=== PATIENT | female | born 1955 | race African-American/Black ===

== ENCOUNTER 2017-04-01 03:30 | Inpatient (IN) | payer OTHER ==
[2017-04-01] VITALS (13 sets, daily range): BP systolic 130–173; BP diastolic 60–84; PULSE 77–109; TEMP 98.1–99
[~2017-04-01] VITALS: Ht 160 cm; Wt 98.1 kg
[~2017-04-01 03:30] MED LIST: ATORVASTATIN; GLIPIZIDE10 MG PO; LASIX40 MG PO; METFORMIN1000 MG PO
[2017-04-01] MEDS ORDERED: LOTREL 5/20 CAP1 CAP PO (04:25)
[2017-04-01] MEDS ORDERED: LIPITOR 80MG80 MG PO (04:32)
[2017-04-01] MEDS ORDERED: PRINIVIL10 MG PO (04:33)
[2017-04-01] MEDS ORDERED: GLUCOTROL 5M5 MG/TAB PO (04:35)
[2017-04-02] VITALS (10 sets, daily range): BP systolic 136–187; BP diastolic 60–94; PULSE 65–82; TEMP 97.8–98.5
[2017-04-02] MEDS ORDERED: LANTUS SOLOS100 U/ML SQ (09:56)
[2017-04-02] MEDS ORDERED: ASPIRIN 32325 MG/TAB PO (09:56)
[2017-04-02] MEDS ORDERED: GLUCAGON EMERGEN1 M1 SQ (12:27)
[2017-04-03] MEDS ORDERED: INSULIN PEN NE1 EAC1 MC (15:16)
== END 2017-04-02 15:38 | disposition home or self-care (01) | DRG 65 ==
LOC: MEDICAL 03:30
PROVIDERS: Family Medicine
DX: I63.9 Cerebral infarction, unspecified (principal); G81.91 Hemiplegia, unspecified affecting right dominant side; I10 Essential (primary) hypertension; E78.5 Hyperlipidemia, unspecified; R47.9 Unspecified speech disturbances; E11.65 Type 2 diabetes mellitus with hyperglycemia; D17.1 Benign lipomatous neoplasm of skin and subcutaneous tissue of trunk; Z79.4 Long term (current) use of insulin
CPT/HCPCS: 99222-AI; 99239; A9585; J1650; J1815; J2250; J3010

== ENCOUNTER 2017-04-16 15:43 | Inpatient (IN) | payer OTHER ==
[~2017-04-16] VITALS: Ht 170.2 cm; Wt 76.6 kg
[~2017-04-16 15:43] MED LIST changes: +ASPIRIN 32325 MG/TAB PO; +GLUCAGON EMERGEN1 M1 SQ; +GLUCOTROL 5M5 MG/TAB PO; +INSULIN PEN NE1 EAC1 MC; +LANTUS SOLOS100 U/ML SQ; +LIPITOR 80MG80 MG PO; +LOTREL 5/20 CAP1 CAP PO; +PRINIVIL10 MG PO
[2017-04-16 18:16] VITALS: BP 163/100; PULSE 62; TEMP 97.8
[2017-04-16 18:46] LABS: BASO % 0.5 % (0.0-2.0); EOS % 0.5 % (0-4.0); GRAN # 3.9 (1.4-6.5); GRAN % 58.8 % (42.2-75.2); HEMATOCRIT 38.9 % (37.0-47.0); HEMOGLOBIN 12.1 g/dl (12.5-16.0); LYMPH # 2.1 (1.2-3.4); LYMPH % 31.7 % (20.0-51.0); MEAN CELL VOLUME 82 fl (80.0-100.0); MEAN CORPUSCULAR HEMOGLOBIN 26 pg (27.0-31.0); MEAN CORPUSCULAR HGB CONC 31 g/dl (33.0-37.0); MEAN PLATELET VOLUME 10.3 fl (7.4-10.4); MONO # 0.6 (0.1-0.6); MONO % 8.3 % (1.7-9.3); PLATELET COUNT 303 K/mm3 (130-400); RED BLOOD COUNT 4.73 M/mm3 (4.10-5.30); REDCELL DISTRIBUTION WIDTH-CV 14.1 % (11.5-14.5); WHITE BLOOD COUNT 6.6 K/mm3 (4.8-10.8)
[2017-04-16 18:53] LABS: ADJUSTED CALCIUM 9.9 mg/dL (8.4-10.2); ALBUMIN 3.2 gm/dL (3.5-5.0); BILIRUBIN,TOTAL 0.5 mg/dL (0.0-1.0); CALCIUM 9.3 mg/dL (8.4-10.2); CREATININE, serum 0.5 mg/dL (0.52-1.25); POTASSIUM 4.2 mmol/L (3.4-5.0); TOTAL PROTEIN 6.8 gm/dL (6.4-8.2)
[2017-04-16 19:35] VITALS: BP 166/90; PULSE 87; TEMP 97.8
[2017-04-16 23:03] VITALS: BP 156/66; PULSE 89; TEMP 98.4
[2017-04-17 02:07] VITALS: BP 130/50; PULSE 17; TEMP 98.5
[2017-04-17 04:00] VITALS: BP 130/50; PULSE 71; TEMP 98.5
[2017-04-17 07:19] VITALS: BP 162/83; PULSE 87; TEMP 98.8
[2017-04-17 12:09] VITALS: BP 149/73; PULSE 91; TEMP 98.3
[2017-04-17 13:27] LABS: PH 5 (5-8); URINE APPEARANCE Clear; URINE BACTERIA None Seen /hpf; URINE BILIRUBIN Negative (NEGATIVE); URINE BLOOD Negative (NEGATIVE); URINE COLOR Yellow; URINE GLUCOSE 1+ (NEGATIVE); URINE KETONE Negative (NEGATIVE); URINE UROBILINOGEN Negative (NEGATIVE)
[2017-04-17 13:29] LABS: URINE WBC 20-50 /hpf
[2017-04-17 16:30] VITALS: BP 143/70; PULSE 74; TEMP 98.9
[2017-04-17 21:43] VITALS: BP 153/84; PULSE 99; TEMP 98.5
[2017-04-18 01:02] VITALS: BP 151/70; PULSE 81; TEMP 98.5
[2017-04-18 04:31] VITALS: BP 137/64; PULSE 62; TEMP 98.5
[2017-04-18 07:28] VITALS: BP 143/66; PULSE 75; TEMP 98.8
[2017-04-18 12:23] VITALS: BP 135/63; PULSE 93; TEMP 98.4
[2017-04-18] MEDS ORDERED: PLAVIX 75MG TAB75 MG PO (12:37)
[2017-04-18] MEDS ORDERED: HCTZ12.5TAB PO (12:37)
[2017-04-18] MEDS ORDERED: ZESTRIL 10MG10 MG PO (12:37)
[2017-04-18] MEDS ORDERED: PRINZIDE 12.5 M1 TA1 PO (14:19)
== END 2017-04-18 14:54 | disposition home or self-care (01) | DRG 65 ==
LOC: MEDICAL 17:15
PROVIDERS: Internal Medicine Cardiovascular Disease
DX: I63.9 Cerebral infarction, unspecified (principal); G81.91 Hemiplegia, unspecified affecting right dominant side; R29.810 Facial weakness; R47.01 Aphasia; I10 Essential (primary) hypertension; E11.9 Type 2 diabetes mellitus without complications; E78.5 Hyperlipidemia, unspecified; Z79.4 Long term (current) use of insulin
CPT/HCPCS: OP; 99223-AI; 99233-AI; 99239; A9585; J1815

== ENCOUNTER 2018-04-17 11:17 | Inpatient (IN) | payer OTHER ==
[~2018-04-17] VITALS: Ht 162.6 cm; Wt 54.8 kg
[~2018-04-17 11:17] MED LIST changes: +CVS GLUCOSE BIT1 CTB PO; +HCTZ12.5TAB PO; +PLAVIX 75MG TAB75 MG PO; +PRINZIDE 12.5 M1 TA1 PO; +ZESTRIL 10MG10 MG PO
[2018-04-17 11:46] VITALS: BP 126/62; PULSE 62; TEMP 97
[2018-04-17 15:31] VITALS: BP 173/79; PULSE 81; TEMP 97.3
[2018-04-17] MEDS ORDERED: ASPIRIN E.C. 8181 MG PO (15:39)
[2018-04-17] MEDS ORDERED: COLACE 100100 MG/CAP PO (15:39)
[2018-04-17 16:04] LABS: GRAN # 2.5 (1.4-6.5); GRAN % 59.8 % (42.2-75.2); HEMOGLOBIN 10.4 g/dl (12.5-16.0); LYMPH # 1.3 (1.2-3.4); LYMPH % 32.2 % (20.0-51.0); MEAN CELL VOLUME 86 fl (80.0-100.0); MEAN CORPUSCULAR HEMOGLOBIN 28 pg (27.0-31.0); MEAN CORPUSCULAR HGB CONC 33 g/dl (33.0-37.0); MEAN PLATELET VOLUME 9.2 fl (7.4-10.4); MONO # 0.3 (0.1-0.6); MONO % 7.5 % (1.7-9.3); PLATELET COUNT 186 K/mm3 (130-400); RED BLOOD COUNT 3.72 M/mm3 (4.10-5.30)
[2018-04-17 16:05] LABS: HEMATOCRIT 31.8 % (37.0-47.0)
[2018-04-17 16:07] LABS: INR 1.1 (0.8-3.0); PROTHROMBIN TIME 12.5 SECONDS (9.7-12.8)
[2018-04-17 16:16] LABS: ALANINE AMINOTRANSFERASE 25 U/L (9-52); ALBUMIN 2.6 gm/dL (3.5-5.0); ALKALINE PHOSPHATASE 111 U/L (50-136); ANION GAP 9 mmol/L (7-16); AST,SGOT 22 U/L (15-37); BILIRUBIN,TOTAL 1.2 mg/dL (0.0-1.0); BLOOD UREA NITROGEN 4 mg/dL (7-17); CALCIUM 8.1 mg/dL (8.4-10.2); CARBON DIOXIDE 27 mmol/L (22-30); CHLORIDE 101 mmol/L (98-107); CREATININE, serum 0.26 mg/dL (0.52-1.25); GLUCOSE 160 mg/dL (74-106); MAGNESIUM 1.4 mg/dL (1.6-2.3); POTASSIUM 3.3 mmol/L (3.4-5.0); SODIUM 136 mmol/L (137-145); TOTAL PROTEIN 5.7 gm/dL (6.4-8.2)
[2018-04-17 16:28] LABS: TROPONIN-I < 0.012 ng/mL (0.000-0.034)
[2018-04-17 20:03] VITALS: BP 148/74; PULSE 100; TEMP 98.2
[2018-04-18] VITALS (7 sets, daily range): BP systolic 124–152; BP diastolic 56–108; PULSE 92–114; TEMP 98–98.6
[2018-04-18 07:26] LABS: BASO % 0.2 % (0.0-2.0); GRAN # 3.4 (1.4-6.5); GRAN % 64.6 % (42.2-75.2); HEMOGLOBIN 10.2 g/dl (12.5-16.0); LYMPH # 1.5 (1.2-3.4); LYMPH % 27.7 % (20.0-51.0); MEAN CELL VOLUME 84 fl (80.0-100.0); MEAN CORPUSCULAR HEMOGLOBIN 28 pg (27.0-31.0); MEAN CORPUSCULAR HGB CONC 33 g/dl (33.0-37.0); MEAN PLATELET VOLUME 9.6 fl (7.4-10.4); MONO # 0.4 (0.1-0.6); MONO % 6.9 % (1.7-9.3); PLATELET COUNT 223 K/mm3 (130-400); RED BLOOD COUNT 3.66 M/mm3 (4.10-5.30); REDCELL DISTRIBUTION WIDTH-CV 17.2 % (11.5-14.5)
[2018-04-18 07:30] LABS: HEMATOCRIT 30.6 % (37.0-47.0)
[2018-04-18 07:49] LABS: CALCIUM 8.2 mg/dL (8.4-10.2); CREATININE, serum 0.27 mg/dL (0.52-1.25); MAGNESIUM 1.9 mg/dL (1.6-2.3); POTASSIUM 4.4 mmol/L (3.4-5.0)
[2018-04-19 00:05] VITALS: BP 126/72; PULSE 100; TEMP 98.2
[2018-04-19 04:39] VITALS: BP 147/88; PULSE 105; TEMP 98.4
[2018-04-19 08:44] VITALS: BP 135/83; PULSE 98; TEMP 98.7
[2018-04-19] MEDS ORDERED: LOVENOX 100100 MG/ML SQ (12:06)
[2018-04-19 12:07] VITALS: BP 131/80; PULSE 107; TEMP 98.8
== END 2018-04-19 15:30 | disposition home health service (06) | DRG 176 ==
LOC: ICU 11:17 → SURG 15:00 → ICU 15:00 → SURG 15:01
PROVIDERS: Physician Assistant
DX: I26.99 Other pulmonary embolism without acute cor pulmonale (principal); C48.2 Malignant neoplasm of peritoneum, unspecified; Z66 Do not resuscitate; I10 Essential (primary) hypertension; E11.9 Type 2 diabetes mellitus without complications; Z86.73 Personal history of transient ischemic attack (TIA), and cerebral infarction without residual deficits; E87.6 Hypokalemia; Z79.4 Long term (current) use of insulin; D64.9 Anemia, unspecified
CPT/HCPCS: 99222-AI; 99232-AI; 99239; J1650; J1815; J3475

== ENCOUNTER 2018-04-28 13:00 | Outpatient (RCR) | payer OTHER ==
[2018-03-16 14:11] LABS: MEAN CELL VOLUME 85 fl (80.0-100.0); MEAN CORPUSCULAR HGB CONC 31 g/dl (33.0-37.0); PLATELET COUNT 244 K/mm3 (130-400); RED BLOOD COUNT 2.81 M/mm3 (4.10-5.30); REDCELL DISTRIBUTION WIDTH-CV 20.9 % (11.5-14.5)
[2018-03-16 14:13] LABS: HEMATOCRIT 23.9 % (37.0-47.0); HEMOGLOBIN 7.5 g/dl (12.5-16.0); MEAN CORPUSCULAR HEMOGLOBIN 27 pg (27.0-31.0)
[2018-03-16 14:22] LABS: ALBUMIN 2.8 gm/dL (3.5-5.0); BILIRUBIN,TOTAL 0.4 mg/dL (0.0-1.0); CREATININE, serum 0.3 mg/dL (0.52-1.25); TOTAL PROTEIN 6.3 gm/dL (6.4-8.2)
[2018-03-16 14:27] VITALS: BP 151/85; PULSE 85; TEMP 98.4
[2018-03-16 14:42] LABS: ANISOCYTOSIS 2+; BAND 10 % (0-10); EOSINOPHIL 1 % (0-4); LYMPHOCYTE 19 % (20.0-51.0); NEUTROPHILS 68 % (42.0-75.2); PLATELET ESTIMATE NORMAL (NORMAL)
[2018-03-18] VITALS (9 sets, daily range): BP systolic 148–183; BP diastolic 82–96; PULSE 90–119; TEMP 97.7–99.4
[2018-03-25 15:11] VITALS: BP 183/86; PULSE 98; TEMP 98
[2018-04-01 08:31] VITALS: BP 153/82; PULSE 105; TEMP 98.1
[2018-04-01 08:41] LABS: MEAN CELL VOLUME 87 fl (80.0-100.0); MEAN CORPUSCULAR HGB CONC 32 g/dl (33.0-37.0); MEAN PLATELET VOLUME 9.2 fl (7.4-10.4); PLATELET COUNT 254 K/mm3 (130-400); RED BLOOD COUNT 3.27 M/mm3 (4.10-5.30); REDCELL DISTRIBUTION WIDTH-CV 17.4 % (11.5-14.5)
[2018-04-01 08:45] LABS: ALANINE AMINOTRANSFERASE 29 U/L (9-52); ALBUMIN 2.8 gm/dL (3.5-5.0); ALKALINE PHOSPHATASE 131 U/L (50-136); ANION GAP 9 mmol/L (7-16); AST,SGOT 29 U/L (15-37); BILIRUBIN,TOTAL 0.5 mg/dL (0.0-1.0); BLOOD UREA NITROGEN 4 mg/dL (7-17); CARBON DIOXIDE 28 mmol/L (22-30); CHLORIDE 98 mmol/L (98-107); CREATININE, serum 0.28 mg/dL (0.52-1.25); GLUCOSE 226 mg/dL (74-106); HEMATOCRIT 28.5 % (37.0-47.0); HEMOGLOBIN 9.1 g/dl (12.5-16.0); IRON,SERUM 53 ug/dL (35-150); LACTATE DEHYDROGENASE 668 U/L (313-618); MEAN CORPUSCULAR HEMOGLOBIN 28 pg (27.0-31.0); POTASSIUM 3.5 mmol/L (3.4-5.0); SODIUM 134 mmol/L (137-145); TOTAL PROTEIN 6.3 gm/dL (6.4-8.2)
[2018-04-01 09:03] LABS: TOTAL IRON BINDING CAPACITY 160 ug/dL (265-497)
[2018-04-01 10:06] LABS: ANISOCYTOSIS 2+; BASOPHIL 1 % (0-2); LYMPHOCYTE 33 % (20.0-51.0); NEUTROPHILS 65 % (42.0-75.2); PLATELET ESTIMATE NORMAL (NORMAL)
[2018-04-08 08:12] VITALS: BP 146/87; PULSE 114; TEMP 98.5
[2018-04-08 08:34] LABS: MEAN CELL VOLUME 86 fl (80.0-100.0); MEAN CORPUSCULAR HGB CONC 32 g/dl (33.0-37.0); MEAN PLATELET VOLUME 9.8 fl (7.4-10.4); PLATELET COUNT 305 K/mm3 (130-400); REDCELL DISTRIBUTION WIDTH-CV 17.2 % (11.5-14.5)
[2018-04-08 08:36] LABS: HEMATOCRIT 26.6 % (37.0-47.0); HEMOGLOBIN 8.4 g/dl (12.5-16.0); MEAN CORPUSCULAR HEMOGLOBIN 27 pg (27.0-31.0)
[2018-04-08 08:42] LABS: ALBUMIN 2.8 gm/dL (3.5-5.0); BILIRUBIN,TOTAL 0.6 mg/dL (0.0-1.0); CREATININE, serum 0.3 mg/dL (0.52-1.25); POTASSIUM 3.8 mmol/L (3.4-5.0); TOTAL PROTEIN 6.3 gm/dL (6.4-8.2)
[2018-04-08 09:17] LABS: ANISOCYTOSIS 1+; BAND 12 % (0-10); LYMPHOCYTE 30 % (20.0-51.0); NEUTROPHILS 55 % (42.0-75.2); PLATELET ESTIMATE NORMAL (NORMAL)
[2018-04-08 09:18] LABS: HYPOCHROMIA 1+
[2018-04-14 13:32] VITALS: BP 128/74; PULSE 113; TEMP 97.4
[2018-04-14 13:41] LABS: MEAN CELL VOLUME 87 fl (80.0-100.0); MEAN CORPUSCULAR HGB CONC 32 g/dl (33.0-37.0); MEAN PLATELET VOLUME 10.3 fl (7.4-10.4); PLATELET COUNT 263 K/mm3 (130-400); RED BLOOD COUNT 2.79 M/mm3 (4.10-5.30)
[2018-04-14 13:44] LABS: HEMATOCRIT 24.3 % (37.0-47.0); HEMOGLOBIN 7.7 g/dl (12.5-16.0); MEAN CORPUSCULAR HEMOGLOBIN 28 pg (27.0-31.0)
[2018-04-14 13:54] LABS: ALBUMIN 2.6 gm/dL (3.5-5.0); BILIRUBIN,TOTAL 0.4 mg/dL (0.0-1.0); CALCIUM 8.6 mg/dL (8.4-10.2); CREATININE, serum 0.29 mg/dL (0.52-1.25); POTASSIUM 3.3 mmol/L (3.4-5.0); TOTAL PROTEIN 5.9 gm/dL (6.4-8.2)
[2018-04-14 14:06] LABS: BAND 12 % (0-10); LYMPHOCYTE 37 % (20.0-51.0); NEUTROPHILS 51 % (42.0-75.2); PLATELET ESTIMATE NORMAL (NORMAL)
[2018-04-14 14:07] LABS: ANISOCYTOSIS 2+; HYPOCHROMIA 2+; MICROCYTOSIS 1+
[2018-04-17 09:56] VITALS: BP 125/72; PULSE 110; TEMP 97
[2018-04-17 10:58] VITALS: BP 129/63; PULSE 96; TEMP 97.4
[2018-04-17 12:08] VITALS: BP 132/66; PULSE 81; TEMP 97.4
[2018-04-17 12:19] VITALS: BP 137/74; PULSE 76; TEMP 97.4
[2018-04-17 13:55] VITALS: BP 132/70; PULSE 72; TEMP 97.4
[2018-04-21 13:43] LABS: HEMOGLOBIN 10.3 g/dl (12.5-16.0); MEAN CELL VOLUME 86 fl (80.0-100.0); MEAN CORPUSCULAR HEMOGLOBIN 28 pg (27.0-31.0); MEAN CORPUSCULAR HGB CONC 32 g/dl (33.0-37.0); MEAN PLATELET VOLUME 9.9 fl (7.4-10.4); PLATELET COUNT 331 K/mm3 (130-400); RED BLOOD COUNT 3.74 M/mm3 (4.10-5.30); REDCELL DISTRIBUTION WIDTH-CV 17.1 % (11.5-14.5)
[2018-04-21 13:54] LABS: BILIRUBIN,TOTAL 0.7 mg/dL (0.0-1.0); CREATININE, serum 0.32 mg/dL (0.52-1.25); POTASSIUM 3.7 mmol/L (3.4-5.0); TOTAL PROTEIN 6.6 gm/dL (6.4-8.2)
[2018-04-21 14:26] VITALS: BP 117/75; PULSE 116; TEMP 98
[2018-04-21 14:37] LABS: BAND 3 % (0-10); LYMPHOCYTE 35 % (20.0-51.0); NEUTROPHILS 59 % (42.0-75.2); PLATELET ESTIMATE NORMAL (NORMAL)
[2018-04-21 14:38] LABS: ANISOCYTOSIS 2+; HYPOCHROMIA 1+; MICROCYTOSIS 1+
[~2018-04-28] VITALS: Ht 170.2 cm; Wt 56.5 kg
[~2018-04-28 13:00] MED LIST changes: +ASPIRIN E.C. 8181 MG PO; +COLACE 100100 MG/CAP PO; +LOVENOX 100100 MG/ML SQ
== END 2018-04-29 11:17 | disposition home or self-care (01) ==
LOC: EUO 13:00
PROVIDERS: Internal Medicine
DX: Z45.2 Encounter for adjustment and management of vascular access device (principal); C48.2 Malignant neoplasm of peritoneum, unspecified; J98.4 Other disorders of lung
CPT/HCPCS: C1751; J1644; J7050; P9016

== ENCOUNTER 2018-05-13 11:00 | Outpatient (RCR) | payer OTHER ==
[2018-05-13] VITALS (9 sets, daily range): BP systolic 96–146; BP diastolic 56–86; PULSE 92–120; TEMP 97.5–99.1
[~2018-05-13] VITALS: Ht 170.2 cm; Wt 53.0 kg
[2018-05-13] MEDS ORDERED: LOVENOX 100100 MG/ML SQ (11:39)
== END 2018-05-13 17:49 | disposition home or self-care (01) ==
LOC: EUO 11:00
DX: C48.2 Malignant neoplasm of peritoneum, unspecified (principal); Z45.2 Encounter for adjustment and management of vascular access device; Z95.9 Presence of cardiac and vascular implant and graft, unspecified
CPT/HCPCS: J7050; P9016

== ENCOUNTER → 2018-07-08 | Outpatient (REF) ==
[2018-07-08 11:31] LABS: BASO % 0.3 % (0.0-2.0); EOS # 0.1 (0.0-0.7); GRAN # 4.2 (1.4-6.5); GRAN % 61.5 % (42.2-75.2); LYMPH # 1.9 (1.2-3.4); LYMPH % 27.1 % (20.0-51.0); MEAN CELL VOLUME 98 fl (80.0-100.0); MEAN CORPUSCULAR HGB CONC 31 g/dl (33.0-37.0); MEAN PLATELET VOLUME 11.3 fl (7.4-10.4); MONO # 0.6 (0.1-0.6); MONO % 8.8 % (1.7-9.3); PLATELET COUNT 366 K/mm3 (130-400); RED BLOOD COUNT 3.19 M/mm3 (4.10-5.30); REDCELL DISTRIBUTION WIDTH-CV 14.8 % (11.5-14.5)
[2018-07-08 11:46] LABS: HEMATOCRIT 31.1 % (37.0-47.0); HEMOGLOBIN 9.6 g/dl (12.5-16.0); MEAN CORPUSCULAR HEMOGLOBIN 30 pg (27.0-31.0)
[2018-07-08 11:52] LABS: ALBUMIN 2.9 gm/dL (3.5-5.0); BILIRUBIN,TOTAL 0.2 mg/dL (0.0-1.0); CALCIUM 8.9 mg/dL (8.4-10.2); CREATININE, serum 0.37 mg/dL (0.52-1.25); POTASSIUM 4.7 mmol/L (3.4-5.0); TOTAL PROTEIN 6.8 gm/dL (6.4-8.2)
[2018-07-08 13:44] LABS: COLLECTION METHOD CATHETER
[2018-07-08 13:59] LABS: PH 6 (5-8); SQUAMOUS EPITHELIAL None Seen /hpf; URINE APPEARANCE Cloudy; URINE BACTERIA Rare /hpf; URINE BILIRUBIN Negative (NEGATIVE); URINE BLOOD Negative (NEGATIVE); URINE CALCIUM OXALATE CRYSTAL Present /hpf; URINE COLOR Yellow; URINE GLUCOSE 1+ (NEGATIVE); URINE KETONE Negative (NEGATIVE); URINE LEUKOCYTE ESTERASE 3+ (NEGATIVE); URINE NITRATE Positive (NEGATIVE); URINE PROTEIN(semi-quant) Negative (NEGATIVE); URINE UROBILINOGEN Negative (NEGATIVE); URINE WBC >50 /hpf
== END ==
LOC: ZCOL.LAB 11:20
DX: D64.9 Anemia, unspecified (principal); N39.0 Urinary tract infection, site not specified; E11.9 Type 2 diabetes mellitus without complications

== ENCOUNTER → 2018-09-10 | Outpatient (CLI) | payer OTHER | LOC: ZCOL.LAB 11:09 | DX: Z46.6 Encounter for fitting and adjustment of urinary device (principal) ==

== ENCOUNTER 2018-11-21 21:59 | Inpatient (IN) | payer OTHER ==
[~2018-11-21] VITALS: Ht 165.1 cm; Wt 56.6 kg
[2018-11-21 22:44] LABS: BASO % 0.2 % (0.0-2.0); EOS # 0.1 (0.0-0.7); EOS % 0.8 % (0-4.0); GRAN # 6.4 (1.4-6.5); GRAN % 65.2 % (42.2-75.2); LYMPH # 2.2 (1.2-3.4); LYMPH % 21.9 % (20.0-51.0); MEAN CELL VOLUME 86 fl (80.0-100.0); MEAN CORPUSCULAR HGB CONC 32 g/dl (33.0-37.0); MEAN PLATELET VOLUME 9.9 fl (7.4-10.4); MONO # 1.1 (0.1-0.6); MONO % 11.5 % (1.7-9.3); PLATELET COUNT 348 K/mm3 (130-400); RED BLOOD COUNT 3.56 M/mm3 (4.10-5.30); REDCELL DISTRIBUTION WIDTH-CV 13.8 % (11.5-14.5)
[2018-11-21 22:46] LABS: HEMATOCRIT 30.6 % (37.0-47.0); HEMOGLOBIN 9.8 g/dl (12.5-16.0); MEAN CORPUSCULAR HEMOGLOBIN 28 pg (27.0-31.0)
[2018-11-21 22:50] LABS: COLLECTION METHOD CATHETER
[2018-11-21 22:55] LABS: ALANINE AMINOTRANSFERASE 27 U/L (9-52); ALBUMIN 3.3 gm/dL (3.5-5.0); ALKALINE PHOSPHATASE 120 U/L (50-136); ANION GAP 2 mmol/L (7-16); AST,SGOT 35 U/L (15-37); BILIRUBIN,TOTAL 0.4 mg/dL (0.0-1.0); BLOOD UREA NITROGEN 10 mg/dL (7-17); CALCIUM 10.2 mg/dL (8.4-10.2); CARBON DIOXIDE 31 mmol/L (22-30); CHLORIDE 99 mmol/L (98-107); CREATININE, serum 0.53 mg/dL (0.52-1.25); GLUCOSE 152 mg/dL (74-106); LIPASE 35 U/L (23-300); POTASSIUM 4.9 mmol/L (3.4-5.0); SODIUM 132 mmol/L (137-145); TOTAL PROTEIN 7.5 gm/dL (6.4-8.2)
[2018-11-21] MEDS ORDERED: MULTI VITAMINS1 TAB PO (22:57)
[2018-11-21] MEDS ORDERED: MULTI VITAMINS1 TAB PEG (22:57)
[2018-11-21 22:58] LABS: PH 5 (5-8); SQUAMOUS EPITHELIAL None Seen /hpf; URINE APPEARANCE Hazy; URINE BACTERIA Many /hpf; URINE BILIRUBIN Negative (NEGATIVE); URINE BLOOD 1+ (NEGATIVE); URINE CALCIUM OXALATE CRYSTAL Present /hpf; URINE COLOR Yellow; URINE GLUCOSE Negative (NEGATIVE); URINE KETONE Negative (NEGATIVE); URINE LEUKOCYTE ESTERASE Negative (NEGATIVE); URINE NITRATE Positive (NEGATIVE); URINE PROTEIN(semi-quant) Negative (NEGATIVE); URINE RBC 0-2 /hpf
[2018-11-21] MEDS ORDERED: VITAMIN B12 1541 TAB PO (22:58)
[2018-11-21 23:09] LABS: TROPONIN-I < 0.012 ng/mL (0.000-0.034)
[2018-11-21] MEDS ORDERED: LANTUS SOLOS100 U/ML SQ (23:48)
[2018-11-22] MEDS ORDERED: LOPRESSOR 225 MG/TAB PO (00:30)
[2018-11-22] MEDS ORDERED: VITAMIN D32000 I1 PO (00:30)
[2018-11-22] MEDS ORDERED: METOPROLOL TART75 MG PO (00:31)
[2018-11-22] MEDS ORDERED: PROTONIX40 MG/Pack PO (00:31)
[2018-11-22] MEDS ORDERED: FOLIC ACID 11 MG/TA1 PO (00:32)
[2018-11-22] MEDS ORDERED: MELATONIN 3MG PO (00:33)
[2018-11-22] MEDS ORDERED: KEPPRA SUSP100 MG/ML PEG (00:33)
[2018-11-22] MEDS ORDERED: ROXICODONE 55 MG/TAB PO (00:34)
[2018-11-22 02:18] VITALS: BP 112/43; PULSE 94; TEMP 97.6
--- NOTE | 2018-11-22 02:22 | NUR ---
PATIENT ARRIVED TO ROOM 356 VIA CART FROM THE ED. PATIENT SETTELED INTO ROOM. ADMISSION ASSESSMENT COMPLETE. SEE ASSESSMENT B. IV FLUIDS INFUSING TO RIGHT FOREARM INT VIA PUMP. CALL LIGHT WITHIN REACH. NO OTHER NEEDS AT THIS TIME.
[2018-11-22] MEDS ORDERED: DIFLUCAN 40M40 MG/ML PEG (02:47)
[2018-11-22] MEDS ORDERED: TYLEINFANT PEG (02:50)
--- NOTE | 2018-11-22 03:27 | NUR ---
PT UNABLE TO ANSWER QUESTIONS FOR 5 PAGE ASSESSMENT. APPROPRIATED MUCH INFORMATION POSSIBLE FROM [facility]. RECORDS. CALLED LONG-TERM 4 TIMES, NO ANSWER. LEFT MESSAGE TO CALL BACK FOR MORE INFO ON PT.
[2018-11-22 04:04] VITALS: BP 94/55; PULSE 88; TEMP 99.3
--- NOTE | 2018-11-22 05:35 | NUR ---
PATIENT BRIEF CHANGED. COCCYX ULCER CULTURE SENT TO LAB. COCCYX DRESSING CHANGED. PATIENT REPOSITIONED IN BED. NO OTHER NEEDS AT THIS TIME.
--- NOTE | 2018-11-22 07:15 | NUR ---
REPORT GIVEN TO DAY SHIFT.
[2018-11-22 08:13] LABS: BASO % 0.3 % (0.0-2.0); EOS # 0.1 (0.0-0.7); EOS % 0.8 % (0-4.0); GRAN # 6.5 (1.4-6.5); GRAN % 75.4 % (42.2-75.2); LYMPH # 1.2 (1.2-3.4); LYMPH % 14.1 % (20.0-51.0); MEAN CELL VOLUME 86 fl (80.0-100.0); MEAN CORPUSCULAR HGB CONC 31 g/dl (33.0-37.0); MEAN PLATELET VOLUME 10.2 fl (7.4-10.4); MONO # 0.8 (0.1-0.6); MONO % 9.1 % (1.7-9.3); PLATELET COUNT 338 K/mm3 (130-400); RED BLOOD COUNT 3.18 M/mm3 (4.10-5.30); REDCELL DISTRIBUTION WIDTH-CV 13.6 % (11.5-14.5)
[2018-11-22 08:14] LABS: HEMATOCRIT 27.4 % (37.0-47.0); HEMOGLOBIN 8.6 g/dl (12.5-16.0); MEAN CORPUSCULAR HEMOGLOBIN 27 pg (27.0-31.0)
[2018-11-22 08:15] VITALS: BP 140/92; PULSE 110; TEMP 98.5
--- NOTE | 2018-11-22 08:15 | NUR ---
Assessment complete. Pt laying in bed, alert, oriented to certain question, difficult to assess d/t aphasia. Breath sounds CTAB. Dressing over abdomen CDI. Pt denies pain at this time, reports slight discomfort to bottom, stage II ulcers x 3 to coccyx, off-loaded with pillow. IVF's infusing per orders through right forearm site without s/s of complications. Call light in reach.
[2018-11-22 08:23] LABS: CALCIUM 9.6 mg/dL (8.4-10.2); CREATININE, serum 0.46 mg/dL (0.52-1.25); POTASSIUM 3.7 mmol/L (3.4-5.0)
[2018-11-22 08:40] LABS: PROLACTIN 14.3 ng/mL (3.0-18.6)
--- NOTE | 2018-11-22 10:35 | NUR ---
Talked to [facility] nursing staff and received the report that pt was able to swallow mechanical soft foods, thickend water, and pills crushed in apple sauce. Piston siringe has been used for 500ml H2o/ shift per report. Jazzmine, charge nurse and Dr. Solorzano informed regarding the [facility] report. Pt resting in bed comfortably and denied pain. Call light in reach.
--- NOTE | 2018-11-22 11:40 | NUR ---
Mechnical soft meal delivered. Pt sat up starght and and tray set up for her to reach easily. Pt started using L hand to feed herself. Call light in reach.
[2018-11-22 12:20] VITALS: BP 124/74; PULSE 86; TEMP 99.2
--- NOTE | 2018-11-22 13:46 | NUR ---
Visit attempted and pt sleeping soundly in bed. Call light in reach.
--- NOTE | 2018-11-22 15:25 | NUR ---
Pt resting in bed comfortably w/ HOB elevated as pt requested. Call light in reach.
--- NOTE | 2018-11-22 16:29 | NUR ---
Tried to get a hold of pt's , DPOA to inform pt's admission to [facility] and discuss pt's care, but no answer and his answering service has been full.
[2018-11-22 16:46] VITALS: BP 123/57; PULSE 107; TEMP 100.8
--- NOTE | 2018-11-22 17:24 | NUR ---
Dr. Jensen reported onto regarding pt's temp amd tylenol. Stat BC ordered and Lab notified.
--- NOTE | 2018-11-22 18:11 | NUR ---
Pt's dinner has been ordered and waiting for the meal. Pt denied pain. Call light in reach.
--- NOTE | 2018-11-22 18:38 | NUR ---
Pt's had walnut size hard stool. Dr. Solorzano notified and gave Senna order. Call light in reach.
--- NOTE | 2018-11-22 19:11 | NUR ---
Report given to DIMAS Newsome. Pt resting in bed comfortably. Call light in reach.
[2018-11-22 20:20] VITALS: BP 116/53; PULSE 104; TEMP 99.4
--- NOTE | 2018-11-22 21:00 | NUR ---
Shift assessment complete. Pt resting in bed, sleepy but easy to wake, alert, aphasic, does not respond verbally but will nod to yes/no questions. Pt c/o pain, PRN pain medical billing coder per request. IV patent. Pt denies further needs. Call light in reach, bed alarm on. Will monitor.
[2018-11-23 01:02] VITALS: BP 99/58; PULSE 102; TEMP 98.7
[2018-11-23 04:30] VITALS: BP 98/70; PULSE 102; TEMP 98.6
[2018-11-23 06:17] LABS: BASO % 0.1 % (0.0-2.0); EOS % 0.2 % (0-4.0); GRAN # 6.1 (1.4-6.5); GRAN % 73.6 % (42.2-75.2); LYMPH # 1.1 (1.2-3.4); LYMPH % 13.1 % (20.0-51.0); MEAN CELL VOLUME 87 fl (80.0-100.0); MEAN CORPUSCULAR HGB CONC 32 g/dl (33.0-37.0); MEAN PLATELET VOLUME 10.1 fl (7.4-10.4); MONO % 12.5 % (1.7-9.3); PLATELET COUNT 332 K/mm3 (130-400); RED BLOOD COUNT 2.66 M/mm3 (4.10-5.30); REDCELL DISTRIBUTION WIDTH-CV 13.7 % (11.5-14.5)
[2018-11-23 06:30] LABS: HEMATOCRIT 23.2 % (37.0-47.0); HEMOGLOBIN 7.4 g/dl (12.5-16.0); MEAN CORPUSCULAR HEMOGLOBIN 28 pg (27.0-31.0)
[2018-11-23 06:33] LABS: CALCIUM 9.1 mg/dL (8.4-10.2); CREATININE, serum 0.44 mg/dL (0.52-1.25); POTASSIUM 3.7 mmol/L (3.4-5.0)
[2018-11-23 07:55] VITALS: BP 97/51; PULSE 97; TEMP 98.2
--- NOTE | 2018-11-23 11:50 | NUR ---
Phone call placed to Shiv Barone to try to set up a family meeting. Shiv reports that he is a dialysis patient who is wheelchairbound with limited transportation. He is not sure when he will get to the hospital to see his . He reports that he is waiting for a visit with Dr Groves before making a decision about his 's care. He did acknowledge that hospice has been discussed with him. He was encouraged to call Dr Groves and discuss.
[2018-11-23 12:45] VITALS: BP 114/42; PULSE 81; TEMP 98.1
--- NOTE | 2018-11-23 13:06 | NUR ---
Recieved call from [facility] stating they had an order to admit Nia to hospice service with their company. Advised them that is not here but will advise them if he is able to come to hospital.
--- NOTE | 2018-11-23 16:25 | NUR ---
SW attended clinical rounds. A palliative care consult was ordered. Palliative Care Nurse, Hina, has been in contact with the patient's , Shiv. The patient's reported that he was going to talk to the patient's PCP, Dr. Groves, before making a decision on the 's care. The hospitalist attempted to contact the patient's PCP. The patient does reside at [facility] for long-term care. SW attempted to contact Woody at [facility]. MIGUEL left a voicemail. Updates were faxed. SW to continue to follow.
[2018-11-23 16:56] VITALS: BP 116/52; PULSE 98; TEMP 98.1
--- NOTE | 2018-11-23 17:00 | NUR ---
Approximately 250 ml, cloudy, red blood from the abdomen site. More output noted when the patient was assisted with turning. Dr. Solorzano notified-plan to recheck hemoglobin in the AM. PRN pain medication given at this time.
[2018-11-23 18:40] LABS: HEMATOCRIT 23.8 % (37.0-47.0); HEMOGLOBIN 7.3 g/dl (12.5-16.0)
--- NOTE | 2018-11-23 20:00 | NUR ---
Shift assessment complete. Pt resting in bed, sleepy but easy to wake, pt alert, aphasic but responds to yes/no questions appropriately. Pt c/o chronic pain to abd, PRN pain medical records coder. Pt denies other c/o. IV patent. Pt s further needs at this time. Call light in reach, will monitor.
[2018-11-23 21:23] VITALS: BP 117/42; PULSE 106; TEMP 98.1
[2018-11-24 01:17] VITALS: BP 118/58; PULSE 113; TEMP 98.7
[2018-11-24 04:58] VITALS: BP 127/54; PULSE 114; TEMP 98.4
[2018-11-24 06:52] LABS: BASO % 0.3 % (0.0-2.0); EOS # 0.1 (0.0-0.7); EOS % 1.8 % (0-4.0); GRAN # 4.7 (1.4-6.5); GRAN % 71.3 % (42.2-75.2); LYMPH # 0.9 (1.2-3.4); LYMPH % 13.6 % (20.0-51.0); MEAN CELL VOLUME 90 fl (80.0-100.0); MEAN CORPUSCULAR HGB CONC 30 g/dl (33.0-37.0); MEAN PLATELET VOLUME 9.8 fl (7.4-10.4); MONO # 0.8 (0.1-0.6); MONO % 12.5 % (1.7-9.3); PLATELET COUNT 318 K/mm3 (130-400); RED BLOOD COUNT 2.55 M/mm3 (4.10-5.30); REDCELL DISTRIBUTION WIDTH-CV 13.9 % (11.5-14.5)
[2018-11-24 06:53] LABS: MEAN CORPUSCULAR HEMOGLOBIN 27 pg (27.0-31.0)
[2018-11-24 07:04] LABS: CALCIUM 9.3 mg/dL (8.4-10.2); CREATININE, serum 0.4 mg/dL (0.52-1.25); POTASSIUM 3.7 mmol/L (3.4-5.0)
[2018-11-24 07:39] VITALS: BP 122/39; PULSE 106; TEMP 98.5
--- NOTE | 2018-11-24 07:45 | NUR ---
Bedside shift received from DIMAS Newsome. Pt was repositioned at this time. Abdominal tumor has copious amounts of bleeding at this time from under pressure dressing, soaking gown and linens. Ostomy bag applied over tumor to reduce amount of moisture to skin. Pressure dressing applied over bag. IVF are infusing into left FA without difficulty. Pt repositioned in bed.
--- NOTE | 2018-11-24 10:35 | NUR ---
Able to reach pt's by phone again today after an failed attempt earlier this morning. He did report that he had talked about hospice with someone but is still trying to hold out for visit with Dr Groves when he returns from vacation. He denies having other contact numbers and reports he carries his phone with him at all times. We talked about the seriousness of his 's condition and that there is very little that we can do for her without increasing her discomfort. No resolution of the problem is available. He then spoke with Dr Solorzano at length and did agree that it would be his wish to change her goal of care to comfort,stopping antibiotics, IV fluids, and treatments that do not contribute to her comfort. He reported that he would try to come to the hospital either today or tomorrow. At this point we are changing her to comfort care status with discharge planned tomorrow. Support provided to . He did report that one of his son's is in [place] and may call. He would want us to release information to him, his name is Shiv Barone III.
--- NOTE | 2018-11-24 10:44 | NUR ---
16 azeri rojas cath to DD inserted per comfort care orders. 10 mL of sterile water inserted into balloon. Janna urine with sediment returned into catheter. Mari care provided. Repositioned in bed.
--- NOTE | 2018-11-24 11:00 | NUR ---
PRN roxicodone was given for pain.
--- NOTE | 2018-11-24 12:32 | NUR ---
Pt is sleeping soundly in bed. She appears to be comfortable.
--- NOTE | 2018-11-24 13:31 | NUR ---
Comfort quilt placed on bed as pt is now on comfort care. She has been sleeping and did not awaken when I placed the quilt on her bed.
--- NOTE | 2018-11-24 13:38 | NUR ---
Pt continues to rest quieltly in bed.
--- NOTE | 2018-11-24 14:26 | NUR ---
Pt continues to sleep soundly in bed.
--- NOTE | 2018-11-24 15:00 | NUR ---
Pt repositioned in bed. Shook head "yes" when asked in pain. Pt given PRN ayesha.
--- NOTE | 2018-11-24 18:15 | NUR ---
Pt reposistioned at this time. Given PRN ayesha when stated she is in pain. Bloody drainage continues from abdominal tumor. Ostomy bag continues to collect drainage without difficulty. Pressure dressing remains in place.
--- NOTE | 2018-11-24 19:36 | NUR ---
Shift assessment complete. Pt resting in bed, sleepy but easy to wake. Pt alert, aphasic but answers yes/no questions appropriately. Pt indicates continued abd pain; PRN pain medical territory manager, will continue to monitor pain closely. INT patent. Pt denies further needs. Call light in reach, bed alarm on. Will monitor.
--- NOTE | 2018-11-25 09:38 | NUR ---
Patient laying in bed. Does not want to be moved or turned at this time. Denies needing medication. Patient just wants to rest with the lights off. Small amount of bloody drainage noted in colostomy bag that is covering abdominal wound. Call light in reach.
--- NOTE | 2018-11-25 11:51 | NUR ---
Dr. Solorzano spoke to the patient's , via phone. The reports that he would like to change focus to comfort care at this time, but remained hesitant to proceed with hospice services. The patient's reported that he would try and come to the hospital today, 11/25. MIGUEL then contacted the patient's to inquire if he was coming to the hospital. He reports that he is delibitated and will try to be up to the hospital this afternoon and that he will call MIGUEL back around 1300 to inform if he can. MIGUEL has contacted and faxed updates to Woody at [facility]. MIGUEL to continue to follow.
[2018-11-25] MEDS ORDERED: ROXANOL 20MG20 MG/ML SL (12:18)
[2018-11-25] MEDS ORDERED: ARTIFICIAL TEAR15 M7 OP (12:22)
[2018-11-25] MEDS ORDERED: ATIVAN 1MG T1 MG/TAB PO (12:23)
[2018-11-25] MEDS ORDERED: TRANSDERM-0.5 MG/21 TD (12:23)
--- NOTE | 2018-11-25 14:37 | NUR ---
Care resumed from Malaika COCHRAN. Patient repositioned in bed for comfort. Roxanol for pain per request. Assesment completed. Pressure dressing to abdomen & ostomy appliance intact for bloody drainage. Will monitor. Social work involvd for discharge
--- NOTE | 2018-11-25 15:58 | NUR ---
Met with and son today at bedside. They were hoping that Nia would stay at the hospital but are aware that she has been placed on comfort care and that we will discharge her to [facility] today as he had discussed with Dr Solorzano yesterday by phone. I did notify [facility] that is now leaving here and going to [facility] and had indicated to Betty WOODWARD and myself that he would sign papers for hospice care.
[2018-11-25 16:14] VITALS: BP 122/39; PULSE 106; TEMP 98.5
--- NOTE | 2018-11-25 16:20 | NUR ---
MIGUEL and Palliative Care Nurse, Hina, met with the patient, patient's (Shiv), and the patient's son at bedside to review the plan of the patient returning back to [facility] today, 11/25, on comfort measures. The patient's informed MIGUEL that he would like hospice for the patient. MIGUEL informed the patient's PA. MIGUEL then contacted Woody at [facility] and informed. Woody reports that they can accept the patient back on hospice and that she has been in contact with [facility]. The patient's was informed of [facility] and was agreeable. Shiv reported that him and the son were on their way to [facility] to sign paperwork. MIGUEL contacted and informed Woody. MIGUEL then contacted and faxed a referral to [facility]. [facility] is to meet with the patient and patient's and son at [facility]. The patient is to discharge today, 11/25, to [facility] on hospice through [facility]. Transportation was set for 1630, via [facility]. MIGUEL informed the patient's , nurse, and [facility]. They were all in agreeance. No additional needs at this time.
--- NOTE | 2018-11-25 16:53 | NUR ---
Patient medicated with roxnol for pain prior to discharge. Patient freshened up and new gown on prior to discharge. Ems taking patient to [facility]. Report called to [facility] nurse & questions answered. INT DC.
== END 2018-11-25 16:53 | disposition hospice, inpatient (51) | DRG 872 ==
LOC: COL.ER 21:59 → MEDICAL 11-22 00:06
PROVIDERS: Emergency Medicine; Hospitalist; Nurse Practitioner; Nurse Practitioner Family; ADMIT Internal Medicine
DX: A41.9 Sepsis, unspecified organism (principal); N39.0 Urinary tract infection, site not specified; C48.2 Malignant neoplasm of peritoneum, unspecified; L98.498 Non-pressure chronic ulcer of skin of other sites with other specified severity; I69.351 Hemiplegia and hemiparesis following cerebral infarction affecting right dominant side; C49.4 Malignant neoplasm of connective and soft tissue of abdomen; L89.152 Pressure ulcer of sacral region, stage 2; Z51.5 Encounter for palliative care; Z86.711 Personal history of pulmonary embolism; Z79.01 Long term (current) use of anticoagulants; D63.0 Anemia in neoplastic disease; I10 Essential (primary) hypertension; E11.9 Type 2 diabetes mellitus without complications; E78.5 Hyperlipidemia, unspecified; G40.909 Epilepsy, unspecified, not intractable, without status epilepticus; Z66 Do not resuscitate; Z93.1 Gastrostomy status
CPT/HCPCS: 99222-AI; 99232-AI; 99239; A4216; G0378; J0696; J1650; J1815; J2060; J2543; J3370; J7030; J7050

== ENCOUNTER 2018-12-12 17:49 | Emergency (ER) | payer OTHER ==
[~2018-12-12] VITALS: Ht 165.1 cm; Wt 56.4 kg
[~2018-12-12 17:49] MED LIST changes: +ARTIFICIAL TEAR15 M7 OP; +ATIVAN 1MG T1 MG/TAB PO; +DIFLUCAN 40M40 MG/ML PEG; +FOLIC ACID 11 MG/TA1 PO; +KEPPRA SUSP100 MG/ML PEG; +LOPRESSOR 225 MG/TAB PO; +MELATONIN 3MG PO; +METOPROLOL TART75 MG PO; +MULTI VITAMINS1 TAB PEG; +MULTI VITAMINS1 TAB PO; +PROTONIX40 MG/Pack PO; +ROXANOL 20MG20 MG/ML SL; +ROXICODONE 55 MG/TAB PO; +TRANSDERM-0.5 MG/21 TD; +TYLEINFANT PEG; +VITAMIN B12 1541 TAB PO; +VITAMIN D32000 I1 PO
[2018-12-12 17:53] VITALS: BP 133/75; TEMP 98.3
[2018-12-12] MEDS ORDERED: KEPPRA SUSP100 MG/ML PEG (18:47)
[2018-12-12] MEDS ORDERED: LACTULOSE10 GM/153 PO (18:48)
[2018-12-12] MEDS ORDERED: ATIVAN 1MG T1 MG/TAB PO (18:49)
[2018-12-12] MEDS ORDERED: FENTANYL 25 MCG TD (18:49)
[2018-12-12] MEDS ORDERED: ROXANOL 20MG20 MG/ML PO (19:00)
[2018-12-12 19:17] VITALS: PULSE 118
== END 2018-12-12 19:17 ==
LOC: COL.ER 17:49
DX: S09.90XA Unspecified injury of head, initial encounter (principal); S00.83XA Contusion of other part of head, initial encounter; I10 Essential (primary) hypertension; E11.9 Type 2 diabetes mellitus without complications; Z86.73 Personal history of transient ischemic attack (TIA), and cerebral infarction without residual deficits; W06.XXXA Fall from bed, initial encounter; Y92.129 Unspecified place in nursing home as the place of occurrence of the external cause